=== PATIENT | female | born 2000 | race Caucasian/White ===

== ENCOUNTER 2020-12-24 16:07 | Outpatient (CLI) | payer OTHER, SELFPAY ==
--- NOTE | ~2020-12-24 | XR_ITS ---
EXAMINATION: XR abdomen/kub 1V DATE: 12/24/2020 16:29 INDICATION: Constipation. Supraumbilical abdominal pain TECHNIQUE: A supine view of the abdomen on 2 radiographs was obtained. COMPARISON: 07/27/2018 FINDINGS: Moderate amount of stool scattered throughout the colon. No dilated loops of gas-filled bowel to sugg est obstruction. T-shaped IUD projects over the central pelvis. Lung bases are clear. Heart size is n ormal. Mild S-shaped thoracolumbar scoliosis. Laminectomies versus congenital nonfusion of the spinou s processes at L4 and L5. IMPRESSION: 1. Moderate amount of colonic stool consistent with given history of constipation. Reviewed, dictated and finalized at location A. IMPRESSION: 1. Moderate amount of colonic stool consistent with given history of constipati on.
== END 2020-12-24 16:08 | disposition home or self-care (01) ==
PROVIDERS: PCP Family Medicine; Visit Provider Physician Assistant
DX: R10.33 Periumbilical pain (principal); K59.00 Constipation, unspecified
CPT/HCPCS: 74018

== ENCOUNTER 2024-12-03 15:28 | Emergency (ER) | payer OTHER, SELFPAY ==
--- NOTE | ~2024-12-03 | XR_ITS ---
CHEST RADIOGRAPH, PA AND LATERAL CLINICAL HISTORY: cp, sob . COMPARISON: None available TECHNIQUE: PA and lateral views of the chest. FINDINGS The cardiomediastinal silhouette is unremarkable. The lungs are clear. Visualized osseous structures and soft tissues are unremarkable. IMPRESSION: No focal infiltrate or effusion. Reviewed, dictated and finalized at location A.
--- NOTE | ~2024-12-03 | CT_ITS ---
EXAMINATION: CTA chest PE protocol DATE: 12/03/2024 19:09 CDT INDICATION: Chest pain TECHNIQUE: Computed tomographic angiography (CTA) of the chest was performed with 100 mL Omnipaque-35 0 intravenous contrast. The dose-length product was 135.65 mGy-cm. Maximum intensity projection 3D-re constructions of the aorta and other arteries were constructed by the technologist on a separate work station. COMPARISON: None. FINDINGS/OBSERVATIONS: PULMONARY ARTERIES: No filling defect is identified within the main or proximal pulmonary artery. The main pulmonary artery is not enlarged. THORACIC AORTA: No aneurysmal dilatation or dissection is present. The great vessels are intact LUNGS: The lungs are clear. MEDIASTINUM: No morphologically suspicious or pathologically enlarged lymph nodes are identified with in the mediastinum or bilateral axilla. BONES OF THE CHEST: No acute fracture. No significant degenerative disease. No lytic or blastic lesions. HEART: The heart is of normal size, without pericardial effusion. IMPRESSION: No pulmonary embolus. No thoracic aortic dissection. The lungs are clear. Reviewed, dictated and finalized at location A.
[2024-12-03 15:49] VITALS: BP 153/114; PULSE 147; RESP 24; TEMP 36.6; O2SAT 100
--- NOTE | 2024-12-03 15:52 | ECG_ITS ---
Test Date: 2024-12-03 15:58:00 Measurements Intervals [place] Rate: 142 P: 83 WV: 128 QRS: 78 QRSD: 90 T: -38 QT: 328 QTc: 506 Interpretive Statements SINUS T[address] DEVIATION AND MODERATE T-WAVE ABNORMALITY, CONSIDER INFERIOR ISCHEMIA BASELINE ARTIFACT- I, II, III, AVR, AVL, AVF, V1, V5-V6 ABNORMAL ECG No previous ECG available for comparison Electronically Signed On 12-03-2024 16:28:35 CDT by Arturo Hutchison D.O.
--- NOTE | 2024-12-03 16:33 | ED.SOB ---
HPI - SOB/Dyspnea General Chief Complaint: Shortness of Breath/Dyspnea <Ceci Cullen PA-C - Last Filed: 12/04/24 09:14> Stated Complaint: Shortness of ipxery-auvddatztcbg-rqqli Tuesday <DAVID Quintero Last Filed: 12/04/24 09:14> Time Seen by Provider: 12/03/24 16:34 <DAVID Quintero Last Filed: 12/04/24 09:14> Focused HPI: This is a 24 year old female that presents to the ER for shortness of breath. Reports she feels like her chest is tight. She is having tingling in her hands and feet. She is not on control. No recent travel or surgery. GENERAL: Anxious, tearful HEAD: Normocephalic, atraumatic. CHEST: Clear to auscultation. ?No respiratory distress. HEART: Tachycardic, regular rhythm.? NEURO: ?Alert and oriented x3. Patient screened in triage and initial orders placed.? ?Additional care and disposition to be based upon?diagnostic testing and treatment. <Ceci Cullen PA-C - Last Filed: 12/04/24 09:14> Focused HPI: This is a 24 year old female that presents to the ER for shortness of breath. Reports she feels like her chest is tight. She is having tingling in her hands and feet. She is not on control. No recent travel or surgery. GENERAL: Anxious, tearful HEAD: Normocephalic, atraumatic. CHEST: Clear to auscultation. ?No respiratory distress. HEART: Tachycardic, regular rhythm.? NEURO: ?Alert and oriented x3. Patient screened in triage and initial orders placed.? ?Additional care and disposition to be based upon?diagnostic testing and treatment. <DAVID Bee Last Filed: 12/03/24 20:40> Source: patient <DAVID Bee Last Filed: 12/03/24 20:40> Mode of arrival: ambulatory <DAVID Bee Last Filed: 12/03/24 20:40> Limitations: no limitations <Antonia Bryant PA-C - Last Filed: 12/03/24 20:40> History of Present Illness HPI Narrative: Agree with above HPI. Patient reports the symptoms have been ongoing since . She also reports feeling dizzy, lightheaded, near syncopal at times. Does have history of anxiety. Family history of heart disease in maternal grandfather. <Antonia Bryant PA-C - Last Filed: 12/03/24 20:40> Related Data Allergies/Adverse Reactions: Allergies Allergy/AdvReac Type Severity Reaction Status Date / Time gentamicin Allergy Severe Anaphylaxis Verified 12/03/24 15:29 <Ceci Cullen PA-C - Last Filed: 12/04/24 09:14> Review of Systems Review of Systems: All systems reviewed & are unremarkable except as noted in HPI. <Antonia Bryant PA-C - Last Filed: 12/03/24 20:40> All systems reviewed & are unremarkable except as noted in HPI and below <Antonia Bryant PA-C - Last Filed: 12/03/24 20:40> [facility] Past Medical History Medical History: Medical History History of neurogenic bladder History of spina bifida <Ceci Cullen PA-C - Last Filed: 12/04/24 09:14> Social History Social History: Social History Smoking status: Never smoker <Ceci Cullen PA-C - Last Filed: 12/04/24 09:14> Exam Narrative: GENERAL: Well appearing, thin, non-toxic, in no acute distress. HEAD: Normocephalic, atraumatic. RESPIRATORY: Airway patent, respirations nonlabored. Clear to auscultation bilaterally, no rales, rhonchi, wheezing. CARDIOVASCULAR: Borderline tachycardic with regular rhythm without murmurs, rubs, or gallops. MUSCULOSKELETAL: Moves all extremities. No gross deformities. SKIN: Warm, dry, normal color. NEURO: A&O X3. Speech clear. Cranial nerves II-XII grossly intact. Steady gait. No ataxic movements. Strength 5 of 5 in upper and lower extremities bilaterally. 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 Sensation intact throughout extremities. PSYCHIATRIC: Anxious, somewhat tremulous. Normal interaction. <Antonia Bryant PA-C - Last Filed: 12/03/24 20:40> Course Vital Signs Vital signs: Vital Signs Temperature 97.9 F 12/03/24 15:49 Pulse Rate 147 H 12/03/24 15:49 Respiratory Rate 24 H 12/03/24 15:49 Blood Pressure 153/114 H 12/03/24 15:49 Pulse Oximetry 100 12/03/24 15:49 Oxygen Delivery Room Air 12/03/24 15:49 Temperature 97.9 F 12/03/24 15:49 Pulse Rate 94 12/03/24 19:18 Respiratory Rate 20 12/03/24 16:48 Blood Pressure 153/114 H 12/03/24 15:49 Pulse Oximetry 100 12/03/24 16:53 Oxygen Delivery Room Air 12/03/24 16:53 <DAVID Quintero Last Filed: 12/04/24 09:14> Vital Signs Temperature 97.9 F 12/03/24 15:49 Pulse Rate 147 H 12/03/24 15:49 Respiratory Rate 24 H 12/03/24 15:49 Blood Pressure 153/114 H 12/03/24 15:49 Pulse Oximetry 100 12/03/24 15:49 Oxygen Delivery Room Air 12/03/24 15:49 Temperature 97.9 F 12/03/24 15:49 Pulse Rate 94 12/03/24 19:18 Respiratory Rate 20 12/03/24 16:48 Blood Pressure 153/114 H 12/03/24 15:49 Pulse Oximetry 100 12/03/24 16:53 Oxygen Delivery Room Air 12/03/24 16:53 <DAVID Bee Last Filed: 12/03/24 20:40> MDM - SOB/Dyspnea MDM Narrative Medical decision making narrative: Patient presented to ED with shortness of breath, chest tightness, tingling in extremities, dizziness. She was tachycardic and tachypneic upon arrival. Tachycardia had improved into the low 100s upon my evaluation. She is afebrile here. Oxygen is stable on room air. EKG with sinus tachycardia, nonspecific ST changes, likely related to rate. Basic laboratory studies are otherwise fairly unremarkable. Evidence of dehydration on CMP with bicarb of 16, anion gap of 16. Fluids are ongoing. Otherwise stable electrolytes. Stable magnesium. TSH within normal range. Troponin is undetectable X2. Urine preg negative. Chest x-ray is clear. D-dimer did result slightly elevated, CTA PE study obtained and unremarkable. Overall workup is reassuring. Feel symptoms are most consistent with dehydration, anxiety. Heart rate normalized with fluid administration into the 90s. She is feeling improved with fluids, does still appear very anxious on exam. Offered small dose of ativan and patient agreeable. On reeval, patient feeling improved, anxiety improved, HR now into 80s. Feel patient is safe for discharge home at this time with close outpatient follow-up. She is on sertraline for her anxiety, but just recently resumed taking this medication. Discussed panic disorder and different medications that are typically used for acute episodes of panic. Advised patient to follow-up closely with PCP for further evaluation and to discuss anxiety management/medications. Patient also advised to stay well hydrated at home. Given strict return precautions. She agrees with plan. Feels comfortable going home. Discharged in stable condition. <Antonia Bryant PA-C - Last Filed: 12/03/24 20:40> Medical Records Attestation: I reviewed the patient's medical records. <Antonia Bryant PA-C - Last Filed: 12/03/24 20:40> Lab Data Attestation: I reviewed the patient's lab results. <Antonia Bryant PA-C - Last Filed: 12/03/24 20:40> Result diagrams: 12/03/24 17:02 12/03/24 17:02 <Ceci Cullen PA-C - Last Filed: 12/04/24 09:14> Labs: Lab Results 12/03/24 12/03/24 12/03/24 Range/Units 17:02 18:19 19:32 WBC 9.9 (4.5-10.0) K/mm3 RBC 4.99 (4.2-5.4) M/mm3 Hgb 15.0 (12.0-15.0) g/dL Hct 43.3 (37.0-47.0) % MCV 86.8 (80-100) fl MCH 30.1 (26-34) pg MCHC 34.6 (32-36) g/dl RDW 12.3 (11.5-14.5) % Plt Count 279 (150-375) k/mm3 MPV 10.1 (7.4-10.4) fl Immature Gran % (Auto) 0.3 (0-0.5) % Neut % (Auto) 78.8 H (45.5-73.1) % Lymph % (Auto) 15.4 L (18.3-44.2) % Hud[place]eth % (Auto) 5.0 (2.6-8.5) % Eos % (Auto) 0.2 (0-4.4) % Baso % (Auto) 0.3 (0.2-1.2) % Lymph # (Auto) 1.52 (0.9-3.2) K/mm3 [place] # (Auto) 0.5 (0.1-0.6) K/mm3 Eos # (Auto) 0.0 (0-0.3) K/mm3 Baso # (Auto) 0.0 (0.0-0.1) K/mm3 Abs Immat Gran (auto) 0.03 (0.00-0.031) K/mm3 Absolute Neuts (auto) 7.8 H (1.3-6.7) K/mm3 Absolute Nucleated RBC 0.000 (0.0-0.012) K/mm3 Nucleated RBC % 0.0 (0.0-0.2) % PT 14.8 H (11.1-14.7) Seconds INR 1.1 APTT 30.4 (22.3-36.8) Seconds D-Dimer 0.51 H (<0.48) ug/mL Sodium 138 (137-145) mmol/L Potassium 3.5 (3.4-5.0) mmol/L Chloride 106 (98-107) mmol/L Carbon Dioxide 16 L (22-30) mmol/L Anion Gap 16 H (4-12) mmol/L BUN 13 (7-17) mg/dL Creatinine 0.74 (0.7-1.0) mg/dL Estim Creat Clear Calc 83 ml/min Estimated GFR > 60 (59 - ) Glucose 133 H (65-110) mg/dL Calcium 9.5 (8.4-10.2) mg/dL Magnesium 1.8 (1.6-2.3) mg/dL Total Bilirubin 0.9 (0.2-1.3) mg/dL AST 26 (14-36) U/L ALT 27 (6-35) U/L Alkaline Phosphatase 66 (38-126) U/L Troponin I < 0.012 < 0.012 (0.000-0.034) ng/mL Total Protein 8.0 (6.3-8.2) g/dL Albumin 4.9 (3.5-5.1) g/dL Lipase 100 (23-300) U/L TSH (Reflex) 2.770 (0.465-4.68) uIU/mL POC Urine HCG, Qual Negative (Negative) <Ceci Cullen PA-C - Last Filed: 12/04/24 09:14> Lab Results 12/03/24 12/03/24 12/03/24 Range/Units 17:02 18:19 19:32 WBC 9.9 (4.5-10.0) K/mm3 RBC 4.99 (4.2-5.4) M/mm3 Hgb 15.0 (12.0-15.0) g/dL Hct 43.3 (37.0-47.0) % MCV 86.8 (80-100) fl MCH 30.1 (26-34) pg MCHC 34.6 (32-36) g/dl RDW 12.3 (11.5-14.5) % Plt Count 279 (150-375) k/mm3 MPV 10.1 (7.4-10.4) fl Immature Gran % (Auto) 0.3 (0-0.5) % Neut % (Auto) 78.8 H (45.5-73.1) % Lymph % (Auto) 15.4 L (18.3-44.2) % [place] % (Auto) 5.0 (2.6-8.5) % Eos % (Auto) 0.2 (0-4.4) % Baso % (Auto) 0.3 (0.2-1.2) % Lymph # (Auto) 1.52 (0.9-3.2) K/mm3 [place] # (Auto) 0.5 (0.1-0.6) K/mm3 Eos # (Auto) 0.0 (0-0.3) K/mm3 Baso # (Auto) 0.0 (0.0-0.1) K/mm3 Abs Immat Gran (auto) 0.03 (0.00-0.031) K/mm3 Absolute Neuts (auto) 7.8 H (1.3-6.7) K/mm3 Absolute Nucleated RBC 0.000 (0.0-0.012) K/mm3 Nucleated RBC % 0.0 (0.0-0.2) % PT 14.8 H (11.1-14.7) Seconds INR 1.1 APTT 30.4 (22.3-36.8) Seconds D-Dimer 0.51 H (<0.48) ug/mL Sodium 138 (137-145) mmol/L Potassium 3.5 (3.4-5.0) mmol/L Chloride 106 (98-107) mmol/L Carbon Dioxide 16 L (22-30) mmol/L Anion Gap 16 H (4-12) mmol/L BUN 13 (7-17) mg/dL Creatinine 0.74 (0.7-1.0) mg/dL Estim Creat Clear Calc 83 ml/min Estimated GFR > 60 (59 - ) Glucose 133 H (65-110) mg/dL Calcium 9.5 (8.4-10.2) mg/dL Magnesium 1.8 (1.6-2.3) mg/dL Total Bilirubin 0.9 (0.2-1.3) mg/dL AST 26 (14-36) U/L ALT 27 (6-35) U/L Alkaline Phosphatase 66 (38-126) U/L Troponin I < 0.012 < 0.012 (0.000-0.034) ng/mL Total Protein 8.0 (6.3-8.2) g/dL Albumin 4.9 (3.5-5.1) g/dL Lipase 100 (23-300) U/L TSH (Reflex) 2.770 (0.465-4.68) uIU/mL POC Urine HCG, Qual Negative (Negative) <Antonia Bryant PA-C - Last Filed: 12/03/24 20:40> Imaging Data Attestation: I personally reviewed and interpreted this imaging study as follows: <Antonia Bryant PA-C - Last Filed: 12/03/24 20:40> Radiologist's impression: ITS Impressions Chest X-Ray 12/03/24 17:14 IMPRESSION: No focal infiltrate or effusion. Chest CTA 12/03/24 19:09 IMPRESSION: No pulmonary embolus. No thoracic aortic dissection. The lungs are clear. <Antonia Bryant PA-C - Last Filed: 12/03/24 20:40> ECG Data EKG #1: Attestation: I personally reviewed and interpreted this ECG as follows: <DAVID Bee Last Filed: 12/03/24 20:40> ECG completion date: 12/03/24 <DAVID Bee Last Filed: 12/03/24 20:40> ECG completion time: 15:58 <DAVID Bee Last Filed: 12/03/24 20:40> EKG Interpretation: tachycardia (142), sinus rhythm and non-specific ST changes <DAVID Bee Last Filed: 12/03/24 20:40> Critical Care Time Critical Care Time Critical Care Time: No <Ceci Cullen PA-C - Last Filed: 12/04/24 09:14> Discharge Plan Discharge Clinical Impression: Breathlessness, Lightheadedness <DAVID Quintero Last Filed: 12/04/24 09:14> Patient Disposition: Home <DAVID Quintero Last Filed: 12/04/24 09:14> Condition: Stable <DAVID Quintero Last Filed: 12/04/24 09:14> Instructions: Antibiotic Form, Dehydration (ED), Lightheadedness (ED), Anxiety (ED), Shortness of Breath (ED) <DAVID Quintero Last Filed: 12/04/24 09:14> Additional Instructions: Your workup here was reassuring. Stay well hydrated at home. Follow up closely with your primary care doctor for further evaluation and to discuss anxiety medication/management. Return to the ED if you experience worsening or severe symptoms, severe pain or dizziness, passing out, unable to keep down food or drink, severe anxiety, thoughts of wanting to harm yourself or anyone else, or any other symptoms of concern. <Ceci Cullen PA-C - Last Filed: 12/04/24 09:14> Patient Language: Tajik <Ceci Cullen PA-C - Last Filed: 12/04/24 09:14> Follow-up/Referrals: Philip,MD Kya [Primary Care Provider] - <Ceci Cullen PA-C - Last Filed: 12/04/24 09:14> Time of Disposition: 20:16 <Ceci Cullen PA-C - Last Filed: 12/04/24 09:14> 20:16 <Antonia Bryant PA-C - Last Filed: 12/03/24 20:40>
[2024-12-03 16:48] VITALS: PULSE 119; RESP 20; O2SAT 100
[2024-12-03 16:52] VITALS: PULSE 119
[2024-12-03 16:53] VITALS: O2SAT 100
[2024-12-03] MEDS: SODIUM CHLORIDE 0.9% IV 1,000 ML 999 ML IV CONT (17:01)
[2024-12-03 17:09] LABS: Basophils Percent Auto 0.3 % (0.2-1.2); Eosinophils Percent Auto 0.2 % (0-4.4); Hematocrit 43.3 % (37.0-47.0); Immature Granulocyte Absolute 0.03 K/mm3 (0.00-0.031); Immature Granulocyte Percent A 0.3 % (0-0.5); Lymphocytes Absolute Auto 1.52 K/mm3 (0.9-3.2); Lymphocytes Percent Auto 15.4 % (18.3-44.2); Mean Corpuscular HGB Conc 34.6 g/dl (32-36); Mean Corpuscular Hemoglobin 30.1 pg (26-34); Mean Corpuscular Volume 86.8 fl (80-100); Mean Platelet Volume 10.1 fl (7.4-10.4); Monocytes Absolute Auto 0.5 K/mm3 (0.1-0.6); Neutrophils Absolute Auto 7.8 K/mm3 (1.3-6.7); Neutrophils Percent Auto 78.8 % (45.5-73.1); Platelet Count Result 279 k/mm3 (150-375); Red Blood Count 4.99 M/mm3 (4.2-5.4); Red Cell Distribution Width 12.3 % (11.5-14.5); White Blood Count 9.9 K/mm3 (4.5-10.0)
[2024-12-03 17:19] LABS: Alanine Aminotransferase 27 U/L (6-35); Albumin Level 4.9 g/dL (3.5-5.1); Alkaline Phosphatase 66 U/L (38-126); Anion Gap 16 mmol/L (4-12); Aspartate Amino Transferase 26 U/L (14-36); Bilirubin,Total 0.9 mg/dL (0.2-1.3); Blood Urea Nitrogen 13 mg/dL (7-17); Calcium 9.5 mg/dL (8.4-10.2); Carbon Dioxide 16 mmol/L (22-30); Chloride 106 mmol/L (98-107); Estimated CRCL calculation 83 ml/min; Estimated Glomerular Filt Rate > 60; Glucose 133 mg/dL (65-110); Lipase 100 U/L (23-300); Potassium 3.5 mmol/L (3.4-5.0); Sodium 138 mmol/L (137-145)
[2024-12-03 17:28] LABS: INR 1.1; Prothrombin Time 14.8 Seconds (11.1-14.7)
[2024-12-03 17:29] LABS: Partial Thromboplastin Time 30.4 Seconds (22.3-36.8)
[2024-12-03 17:30] LABS: Troponin I < 0.012 ng/mL (0.000-0.034)
--- OUTSIDE RECORDS SUMMARY | 2024-12-03 17:31 | XMS_ITS | Clinical Summary ---
Author Organization [facility] Address [address] [place] [id number] Care Team Providers Care Health Care Specialist Name Role Phone Unavailable Primary Care Provider Unavailabl e Social History Tobacco Use Types Packs/Day Years Used Date Smoking Tobacco: Never Assessed Comments Unknown Sex and Gender Information Value Date Recorded Sex Assigned at Not on file Legal Sex Female 7:12 PM CDT Gender Identity Not on file Sexual Orientation Not on file Last Filed Vital Signs Vital Sign Reading Time Taken Comments Blood Pressure 100/68 03/15/2012 9:03 AM CDT Pulse 84 03/15/2012 9:03 AM CDT Temperature - - Respiratory Rate - - Oxygen Saturation - - Inhaled Oxygen Concentration - - Weight 38.1 kg (84 lb) 03/15/2012 9:03 AM CDT Height 144.8 cm (4' 9 ) 03/15/2012 9:03 AM CDT Body Mass Index 18.18 03/15/2012 9:03 AM CDT Plan of Treatment Health Maintenance Due Date Last Done Comments Cervical Cancer Screening Pa p Smear (Age 21 to 29) Every 3 Years 2000 Cervical Cancer Screening 2000 Annual Physical 2003 HPV Vaccines (1 - 3-dose series) 2015 Hepatitis C 2018 DTaP, Tdap and Td Vaccines ( 1 - Tdap) 2019 Hepatitis B Vaccines (1 of 3 - 19+ 3-dose series) 2019 COVID-19 Vaccine (2023-2 5 season) 2024 Meningococcal B Vaccine Aged Out No l onger eligible based on patient's age to complete this topic Meningococcal Vaccine Aged Out No marcellus derick eligible based on patient's age to complete this topic Pneumococcal Vaccine: Pediat rics (0 to 5 Years) and At-Risk Patients (6 to 64 Years) Aged Out No longer eligible b ased on patient's age to complete this topic RSV Immunizations Under 20 Months Aged Out No longer eligible based on patient's age to complete this topic
--- OUTSIDE RECORDS SUMMARY | 2024-12-03 17:31 | XMS_ITS | Referral Summary ---
Author Organization [facility] Address [address] [place] [address] Care Team Providers Care Cork Compounder Name Role Phone Kya Palacios MD Primary Care Provi ange Allergies Active Allergy Reactions Criticality Noted Date Comments Gentamicin Anaphylaxis High 06/15/2018 Pt is not sure but thinks anaphylaxis Latex Anaphylaxis High 02/16/2008 Pt not sure but thinks anaphylaxis Sulfa (Sulfonamide Antibiotics) Unknown 03/02/2013 Medications tolterodine LA (DETROL LA) 4 mg 24 hr capsuleIndicati ons:Neurogenic bladder Take 2 capsules (8 mg total) by mouth daily 180 capsule 3 04/23/2024 04/23/20 25 Active sertraline (Zoloft) 50 mg tablet Take 1 tablet (50 mg total) by mouth daily 30 tablet 2 08/03/2024 08/03/20 25 Active Active Problems Problem Noted Date Diagnosed Date Other headache syndrome 05/05/2022 Restricted diet 05/05/2022 Assessment & Plan (05/05/2022 10:29 AM CDT): Currently trying to lose weight We reviewed healthy changes Reviewed staying hydrated- especially given lightheaded, orthostasis Aim for 50-64 oz of water a day She is currently eating 1 meal a day- encouraged eating every 3 hours- reviewed balanced plate, focusing on healthy foods Review this with her psychiatrist Follow up in 2 weeks Routine general medical exam ination at a health care facility 01/18/2019 Assessment & Plan (01/18/2019 2:44 PM CDT): For social interaction and resources we reviewed community activities, and future plans. For oral health we reviewed dental care and visitsd For sexuality reviewed abstinence/safer sex, consent, and STI's For healthy habits discussed limited screens, no smoking, drinking, or drugs For nutrition and growth discussed healthy foods, limiting soda For safety discussed seatbelts, Internet safety, depression. 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 Likely multifactorial including eating less, lack of fiber, lack of hydration, possible neurogenic component? - reviewed increasing fiber in diet and increasing water intake to at least 6 glasses/ day (up from 3). Patient given handout today. - continue regular exercise - recommend capful of MiraLax daily until stools return to normal pattern, then use as needed. - advised to use stimulant laxative like Dulcolax or senna only as needed if no bowel movements after 6-7 days with discomfort. Scoliosis of thoracolumbar spine 03/21/2018 Adjustment disorder with mixed anxiety and depre ssed mood 02/02/2018 Assessment & Plan (05/05/2022 9:48 AM CDT): Chronic, worse Keep appointment with psychiatry Continue effexor Encouraged to review with psychiatry her weight loss efforts Encouraged seeing a psychologist it may help Any dangerous thoughts to the er Assessment & Plan (01/18/2019 2:46 PM CDT): Psychological condition is improving with treatment. Continue current treatment regimen. Psychological condition will be reassessed at the next regular appointment. 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 Stable. Monitor Neurogenic bladder 12/25/2008 Assessment & Plan (01/05/2024 9:17 AM CDT): Chronic. Stable. Follows with Urology. Uses catheter 6-8 times daily. Continue. Assessment & Plan (01/18/2019 2:44 PM CDT): Continue current regimen Call for questions or concerns Immunizations Immunization Administration Dates Next Due DTaP 2000 DTaP 5 Pertussis 01/18/2006, 2,02/05/2001,12/06 HPV, Quadrivalent 01/22/2015, 2,04/10/2012,01/22 Hep A, Pediatric 04/10/2012,02/09/2011 Hep B / HiB 06/26/2001,2000,2000 HiB 2000 IPV 01/18/2006, 2,10/16/2001,12/06,2000 Influenza, Quadrivalent, Spl it, Preservative Free, Intramuscular 05/05/2022,07/02/2020 Influenza, Trivalent, IM (MDV) 06/24/2005,2003,06/17/2004 Influenza, Trivalent, Preser vative Free, Intramuscular 06/29/2016 Influenza, Unspecified 05/29/2023(Deferred: Rubi ent decision) MMR 01/18/2006,10/16/2001 Meningococcal MCV4P (Menactra) 03/21/2018,2011 PPD TEST 02/21/2018,02/14/2018,02/07/2018 Pneumococcal Conjugate 7-Valent 07/24/20,02/14/2001,2000,09/13 Tdap 04/10/2012 Varicella 02/09/2011,07/24/2001 Social History Tobacco Use Types Packs/Day Years Used Date Smoking Tobacco: Never Smokeless Tobacco: Never Tobacco Cessation:Counseling Given: Not Answered Alcohol Use Standard Drinks/Week Comments Not Currently 0 (1 standard drink = 0.6 oz pur e alcohol) AUDIT-C Answer Date Recorded Q1: How often do you have a drink containing alcohol? Never 01/05/2024 Q2: How many drinks containi ng alcohol do you have on a typical day when you are drinking? Patient does not drink Q3: How often do you have si x or more drinks on one occasion? 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 Gender Identity Not on file Sexual Orientation Not on file Last Filed Vital Signs Vital Sign Reading Time Taken Comments Blood Pressure 120/70 01/05/2024 8:53 AM CDT Pulse 70 01/05/2024 8:53 AM CDT Temperature 36.7 C (98 F) 01/05/2024 8:53 AM CDT Respiratory Rate 16 01/05/2024 8:53 AM CDT Oxygen Saturation 99% 01/05/2024 8:53 AM CDT Inhaled Oxygen Concentration - - Weight 55.2 kg (121 lb 9.6 oz) 01/05/2024 8:53 A M CDT Height 162.6 cm (5' 4 ) 01/05/2024 8:53 AM CDT Body Mass Index 20.87 01/05/2024 8:53 AM CDT Plan of Treatment Not on file Procedures Procedure Name Priority Date/Time Associated Diagnosis Comments HM CHLAMYDIA AND GONORRHEA Routine 01/10/2023 HM PAP SMEAR Routine 01/10/2023 HEPATITIS C ANTIBODY Routine 08/04/2018 2:10 PM MARKETING MANAGER from Last 3 Months or Most Recently Relevant to Health Maintenance Results * HM CHLAMYDIA AND GONORRHEA (01/10/2023) us Historical Provider HEALTH MAINTENANCE Final Result * HM PAP SMEAR (01/10/2023) SCRIBED Pap test normal us Historical Provider HEALTH MAINTENANCE Final Result * Hepatitis C antibody (08/04/2018 2:10 PM MARKETING MANAGER) Pathologist [facility] Hep C Ab Nonreactive Nonreactive [facility] Comment: Interpretive Data Positive and greyzone results should be confirmed by a molecular method. If positive or greyzone, a second separately collected sample should be submitted for Hepatitis C Virus RNA. Detection and Quantitation by Real-Time Reverse Rn Disease Management-PCR.Current Interpretive data was last revised on 2017. Testing performed by: [facility], [address] [place]., [address] Blood specimen (specimen) 08/04/2018 2:10 PM MARKETING MANAGER 08/04/2018 3:09 PM MARKETING MANAGER Narrative [facility] - 08/05/2018 12:18 PM MARKETING MANAGER us Unknown Referring LAB MICROBIOLOGY - GENERAL ORDERABLES Edited Result - Final [facility] Department [place] [address] from Last 3 Months or Most Recently Relevant to Health Maintenance Insurance [employer] Advance Directives For more information, please contact: [phone] Documents on File Type Date Recorded Patient Title Assistant Expl anation ADVANCE DIRECTIVE 08/04/2018 11:49 AM Care Teams Cork Compounder Relationship Specialty Start Date End Date Kya Palacios MD [facility] [address] [place] [address] PCP - General Family Medicine 06/15/18
--- OUTSIDE RECORDS SUMMARY | 2024-12-03 17:31 | XMS_ITS | Clinical Summary ---
Author Organization [facility] ospital Address [address] [place] [address] Care Team Providers Care Pot Feeder Name Role Phone Kya Palacios MD Primary [...] (06/26/2018): Added automatically from request for surgery [id number] Curly toes, congenital 06/20/2018 UTI (urinary tract [...] Conjugate 7-Valent 07/24/20,02/14/2001,2000,09/13 Tdap 04/10/2012 Varicella 02/09/2011,07/24/2001 Surgical History Surgery Date Site/Laterality Comments TONSILECTOMY, ADENOIDECTOMY, BILATERAL MYRINGOTOMY AND TUBES 2004 CYSTOSCOPY 2007 SPINAL CORD UNTETHERING FOOT SURGERY 2018 Cuneiform and metatarsal osteotomy right and selective soft tissue releases Medical History Medical History Date Comments Neurogenic bladder CIC every 3 - 4 hours per day using a 12 FR Scoliosis with lower back pain Spina bifida (HCC) S/P detetheri ng, walks without assistance Anxiety on FLUoxetine HC l - 20 MG 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 Depression Family History Medical History Relation Name Comments No Known Problems Father No Known Problems Mother Diabetes Paternal Grandfather Diabetes Paternal Grandmother No Known Problems Sister Relation Name Status Comments Father Alive Maternal Grandfather Alive Maternal Grandmother Alive Mother Alive Paternal Grandfather Alive Paternal Grandmother Alive Sister Alive Social History Tobacco Use Types Packs/Day Years [...] on file Legal Sex Female 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 Gender Identity Not on file Sexual Orientation Not on file Obstetrics History Last Filed Vital Signs Vital Sign Reading [...] 01/05/2024 8:53 AM CDT Plan of Treatment Health Maintenance Due Date Last Done Comments Regular Well Visit/Exam 18-64 01/19/2020 01/18/2019 DTaP/Tdap/Td Vaccine (7 - Td or Tdap) 04/10/2022 04/10/2012, 01/18/2006, 10/16/2001, Additional history exists Cervical Cancer Screening 01/11/2024 01/10/2023 Chlamydia and Gonorrhea (GC/ CT) Screening 01/11/2024 01/10/2023 Covid-19 Vaccine (2023-2 5 season) 2024 01/24/2021, 01/03/2021 Depression Screening 01/04/2025 01/05/2024, 05/05/2022, 05/05/2022, Additional history exists Influenza Vaccine (Season Ended) 2025 05/05/2022, 07/02/2020, 06/29/2016, Additional history exists Hepatitis B Screening Completed 06/26/2001 , 2000, 2000 Pneumococcal vaccine <65 Completed 001, 02/14/2001, 2000, Additional history exists Varicella Vaccines Completed 02/09/2011, 07/24/2001 HPV Vaccines Completed 01/22/2015, 02/2012, 04/10/2012, Additional history exists Hepatitis C Screening Completed 08/04/2018 Procedures Procedure Name Priority Date/Time Associated Diagnosis Comments HM CHLAMYDIA AND GONORRHEA Routine 01/10/2023 HM PAP SMEAR Routine 01/10/2023 HEPATITIS C ANTIBODY Routine 08/04/2018 2:10 PM HORSERADISH MAKER from Last 3 Months or Most Recently Relevant to Health Maintenance Results * HM CHLAMYDIA AND GONORRHEA (01/10/2023) Historical Provider HEALTH MAINTENANCE Final Result * HM PAP SMEAR (01/10/2023) SCRIBED Pap test normal us Historical Provider HEALTH MAINTENANCE Final Result * Hepatitis C antibody (08/04/2018 2:10 PM HORSERADISH MAKER) Hep C Ab Nonreactive Nonreactive [facility] Comment: Interpretive Data Positive and greyzone results should be confirmed by a molecular method. If positive or greyzone, a second separately collected sample should be submitted for Hepatitis C Virus RNA. Detection and Quantitation by Real-Time Reverse Drier Transfer Car Operator-PCR.Current Interpretive data was last revised on 2017. Testing performed by: [facility], [address] [place]., [address] Blood specimen (specimen) 08/04/2018 2:10 PM HORSERADISH MAKER 08/04/2018 3:09 PM HORSERADISH MAKER Narrative [facility] - 08/05/2018 12:18 PM HORSERADISH MAKER us Unknown Referring LAB MICROBIOLOGY - GENERAL ORDERABLES Edited Result - Final [facility] Department [place] [address] from Last 3 Months or Most Recently Relevant to Health Maintenance Insurance [employer] [facility] HMO/PPO Address: [facility] [address] [place] [address] [employer] [facility] HMO/PPO Address: [address] [place], [place] [id number] [employer] [facility] [facility] HMO/PPO Address: [address] [place], [place] [id number] Advance Directives For more information, please contact: [phone] Documents on File Type Date Recorded 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
[2024-12-03 17:37] LABS: D Dimer 0.51 ug/mL (<0.48)
[2024-12-03 18:10] LABS: Magnesium 1.8 mg/dL (1.6-2.3)
--- OUTSIDE RECORDS SUMMARY | 2024-12-03 18:16 | XMS_ITS | Referral Summary ---
Author Organization 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 Gender Identity Not on file Sexual Orientation [...] HEPATITIS C ANTIBODY Routine 08/04/2018 2:10 PM SUMMONS SERVER from Last 3 Months or Most Recently Relevant to Health Maintenance Results * HM CHLAMYDIA AND GONORRHEA (01/10/2023) us Historical Provider HEALTH MAINTENANCE Final Result * HM PAP SMEAR (01/10/2023) SCRIBED Pap test normal us Historical Provider HEALTH MAINTENANCE Final Result * Hepatitis C antibody (08/04/2018 2:10 PM SUMMONS SERVER) Pathologist [facility] Hep C Ab Nonreactive Nonreactive [facility] Comment: Interpretive Data Positive and greyzone results should be confirmed by a molecular method. If positive or greyzone, a second separately collected sample should be submitted for Hepatitis C Virus RNA. Detection and Quantitation by Real-Time Reverse Signal Wirer-PCR.Current Interpretive data was last revised on 2017. Testing performed by: [facility], [address] [place]., [address] Blood specimen (specimen) 08/04/2018 2:10 PM SUMMONS SERVER 08/04/2018 3:09 PM SUMMONS SERVER Narrative [facility] - 08/05/2018 12:18 PM SUMMONS SERVER us Unknown Referring LAB MICROBIOLOGY - GENERAL ORDERABLES Edited Result - Final [facility] Department [place] [address] from Last 3 Months or Most Recently Relevant to Health Maintenance Insurance [employer] Advance Directives For more information, please contact: [phone] Documents on File Type Date Recorded Patient Driver License Agent Expl anation ADVANCE DIRECTIVE 08/04/2018 11:49 AM Care Teams Rehab Therapist Relationship Specialty Start Date End Date Kya Palacios MD [facility] [address] [place] [address] PCP - General Family Medicine 06/15/18
--- OUTSIDE RECORDS SUMMARY | 2024-12-03 18:16 | XMS_ITS | Clinical Summary ---
Author Organization [facility] osp[facility] Address [address] [place] [address] Care Team Providers Care Search Engine Optimization Strategist Name Role Phone Kya Palacios MD Primary [...] (06/26/2018): Added automatically from request for surgery [id number] Curly toes, congenital 06/20/2018 UTI (urinary tract [...] on file Legal Sex Female 12:22 AM MANAGER OUTPATIENT Gender Identity Not on file Sexual Orientation [...] HEPATITIS C ANTIBODY Routine 08/04/2018 2:10 PM MANAGER OUTPATIENT from Last 3 Months or Most Recently Relevant to Health Maintenance Results * HM CHLAMYDIA AND GONORRHEA (01/10/2023) Historical Provider HEALTH MAINTENANCE Final Result * HM PAP SMEAR (01/10/2023) SCRIBED Pap test normal us Historical Provider HEALTH MAINTENANCE Final Result * Hepatitis C antibody (08/04/2018 2:10 PM MANAGER OUTPATIENT) Hep C Ab Nonreactive Nonreactive [facility] Comment: Interpretive Data Positive and greyzone results should be confirmed by a molecular method. If positive or greyzone, a second separately collected sample should be submitted for Hepatitis C Virus RNA. Detection and Quantitation by Real-Time Reverse Binding Printer-PCR.Current Interpretive data was last revised on 2017. Testing performed by: [facility], [address] [place]., [address] Blood specimen (specimen) 08/04/2018 2:10 PM MANAGER OUTPATIENT 08/04/2018 3:09 PM MANAGER OUTPATIENT Narrative [facility] - 08/05/2018 12:18 PM MANAGER OUTPATIENT us Unknown Referring LAB MICROBIOLOGY - GENERAL ORDERABLES Edited Result - Final [facility] Department [place] [address] from Last 3 Months or Most Recently Relevant to Health Maintenance Insurance [employer] [employer] Advance Directives For more information, please contact: [phone] Documents on File Type Date Recorded Patient Handyperson Expl anation ADVANCE DIRECTIVE 08/04/2018 11:49 AM Care Teams Search Engine Optimization Strategist Relationship Specialty Start Date End Date Kya Palacios MD [address] [place] [address] PCP - General Family Medicine 10/18/18
--- OUTSIDE RECORDS SUMMARY | 2024-12-03 18:16 | XMS_ITS | Clinical Summary ---
Author Organization [facility] Address [address] [place] [address] Care Team Providers Care [place] Name Role Phone Unavailable Primary Care Provider [...]
[2024-12-03 18:22] LABS: BEDSIDEPREGUCG Negative (Negative)
[2024-12-03 19:18] VITALS: PULSE 94
--- NOTE | 2024-12-03 19:26 | ECG_ITS ---
Test Date: 2024-12-03 19:32:18 Measurements Intervals [place] Rate: 99 P: 58 HI: 126 QRS: 68 QRSD: 102 T: 57 QT: 381 QTc: 489 Interpretive Statements SINUS RHYTHM BASELINE ARTIFACT- I, II, III, AVR, AVL NORMAL ECG Compared to ECG 12/03/2024 15:58:00 HEART RATE HAS DECREASED POSSIBLE ISCHEMIA NO LONGER PRESENT Electronically Signed On 12-03-2024 19:35:58 CDT by Arturo Hutchison D.O.
[2024-12-03] MEDS: LORazepam (*CRX) 0.5 MG TABLET PO (19:41)
[2024-12-03 20:06] LABS: Troponin I < 0.012 ng/mL (0.000-0.034)
== END 2024-12-03 20:38 | disposition home or self-care (01) ==
PROVIDERS: Family Medicine; Physician Assistant; Emergency Provider Physician Assistant; PCP Family Medicine
DX: R06.81 Apnea, not elsewhere classified (principal); R42 Dizziness and giddiness; Q05.9 Spina bifida, unspecified; N31.9 Neuromuscular dysfunction of bladder, unspecified; R00.0 Tachycardia, unspecified; R94.31 Abnormal electrocardiogram [ECG] [EKG]
CPT/HCPCS: 36415; 71046; 71275; 80053; 81025; 83690; 83735; 84443; 84484; 85025; 85380; 85610; 85730; 93005; 96360; 99284; A9270; J7030; Q9967